=== PATIENT | male | born 2000 | race Caucasian/White ===

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

== ENCOUNTER 2024-07-16 01:57 | Emergency (ER) | payer BC, MEDICAID ==
[~2024-07-16] VITALS: Ht 180.3 cm; Wt 75.0 kg
[2024-07-16 05:49] VITALS: TEMP 98.4
[2024-07-16] MEDS ORDERED: NO HOME MEDS (05:50)
[2024-07-16 05:53] LABS: BILIRUBIN,URINE NEGATIVE (Neg); CLARITY,URINE CLEAR (Clear); COLOR,URINE YELLOW (Yellow); GLUCOSE, URINE NEGATIVE (Neg); KETONES,URINE NEGATIVE (Neg); LEUKOCYTE ESTERASE ,URINE NEGATIVE (Neg); NITRITES, URINE NEGATIVE (Neg); OCCULT BLOOD,URINE NEGATIVE (Neg); PROTEIN,URINE NEGATIVE (Neg); UROBILINOGEN,URINE 0.2 E.U/dL (0.2-1.0)
[2024-07-16 06:04] LABS: UA COLLECTION TYPE CLN CATCH MIDSTREAM
[2024-07-16] MEDS: azithromycin 250mg tablet PO ONE (06:50)
[2024-07-16] MEDS: CefTRIAXone 500MG IM Kit w/LIDOcaine IM ONE (06:50)
[2024-07-16 07:08] VITALS: BP 119/69; PULSE 60; RESP 14; O2SAT 99
[2024-07-18 19:07] LABS: CHLAMYDIA TRACHOMATIS, NAA Negative (Negative)
== END 2024-07-16 07:10 | disposition home or self-care (01) ==
LOC: ER 01:58
DX: Z20.2 Contact with and (suspected) exposure to infections with a predominantly sexual mode of transmission (principal)
CPT/HCPCS: 36415; 81003; 87491; 87591; 96372; 99283; J0696